=== PATIENT | female | born 1980 | race Caucasian/White ===

== ENCOUNTER → 2021-01-22 15:02 | Outpatient (CLI) | payer BC, SELFPAY | PROVIDERS: PCP Nurse Practitioner Family; Referring Provider Otolaryngology; Visit Provider Otolaryngology | DX: Z03.818 Encounter for observation for suspected exposure to other biological agents ruled out (principal); Z11.59 Encounter for screening for other viral diseases | CPT/HCPCS: 87635; C9803; U0002 ==

== ENCOUNTER → 2021-01-23 | Outpatient (CLI) | payer BC, SELFPAY ==
--- NOTE | 2021-01-23 09:15 | TONS_PTH ---
PATIENT: HESHAM LANCE LOC: [facility] U#:[id number] AGE/SX: 40/F ROOM: RE01/23/[address]: Dr. Chele Portillo MD : 1980 BED: DIS: 01/23/2021 SPEC #: [id number] RECD: 01/23/21 15:05 STATUS: CAITLIN REKip #: [id number] JIMENA: 01/23/21 09:[address]: Chele Portillo DEPT: SURGICAL PATHOLOGY RECD BY: Argelia Lockhart ENTERED: 01/24/21 09:49 SP TYPE: TONSILS OTHR DR: Katie Lopez, [facility] Tissues: Tonsil, NOS Procedures: Surgery Specimen Level III HEADER OPERATION: Tonsillectomy PRE-OP DIAGNOSIS: Chronic tonsillitis TISSUE SUBMITTED: Tonsils (right pinned) MICROSCOPIC DIAGNOSIS Right and left tonsils, bilateral tonsillectomies: Benign lymphoid follicular hyperplasia, consistent with chronic tonsillitis. Organisms consistent with actinomyces. AM:lucien 01/25/2021 MICROSCOPIC DESCRIPTION Slides are reviewed. GROSS DESCRIPTION Received is one container labeled with the patient's name and designated tonsils - pin on right are two tonsils that in aggregate weigh 14.2 gm. The right tonsil has a pin on it and measures 4.5 x 3 x 1.5 cm. The left tonsil measures 4 x 2.5 x 1.5 cm. Both tonsils are similar in appearance. The external surfaces are pink-villeda, smooth, glistening and somewhat lobulated. Focally they are hemorrhagic, granular and bear cautery artifact. Serial cross sections through the tonsils reveal normal tonsillar architecture. Sections are submitted in two cassettes as follows: 1 - right tonsil, 2 - left tonsil. / HELDER:lucien 01/24/21 TC:5 CPT: 77019 x2
== END | disposition home or self-care (01) ==
LOC: LABSPEC 15:19
PROVIDERS: PCP Nurse Practitioner Family; Referring Provider Otolaryngology; Visit Provider Otolaryngology
DX: J35.01 Chronic tonsillitis (principal)
CPT/HCPCS: 88304